=== PATIENT | female | born 2000 | race Native Hawaiian/Other Pacific Islander ===

== ENCOUNTER 2019-12-22 20:37 | Emergency (ER) | payer OTHER ==
[~2019-12-22] VITALS: Ht 165.1 cm; Wt 78.0 kg
[2019-12-22 21:42] LABS: PLATELET COUNT 386 K/uL (152-353)
[2019-12-22 21:55] LABS: POTASSIUM 3.6 mmol/L (3.6-5.2)
[2019-12-22 22:44] VITALS: BP 118/88; TEMP 97.9
== END 2019-12-22 23:22 | disposition home or self-care (01) ==
LOC: ED 20:37
PROVIDERS: Emergency Medicine Emergency Medical Services
DX: F41.8 Other specified anxiety disorders (principal)
CPT/HCPCS: 36415; 80053; 80307; 81000; 81025; 85027; 96360; 96375; 99284; J2060